=== PATIENT | female | born 1975 ===

== ENCOUNTER 2025-07-11 12:30 | Inpatient (IN) | payer OTHER ==
[~2025-07-11] VITALS: Ht 162.6 cm; Wt 81.6 kg
[2025-07-13 18:27] LABS: T4 FREE 0.88 NG/ML (0.76-1.46)
[2025-07-13 18:46] LABS: TSH 5.09 uIU/mL (0.358-3.74)
[2025-07-17] MEDS ORDERED: RINGERS SOLUTION,LACTATED 1,000 ML IV SCH (14:30)
[2025-07-17 14:39] VITALS: BP 141/86; O2SAT 100
[2025-07-17 17:11] VITALS: BP 125/84; O2SAT 99
[2025-07-17] MEDS ORDERED: FAMOTIDINE/PF 20 MG/2 ML VIAL IV SCH (21:00)
[2025-07-18 00:30] VITALS: BP 107/70; O2SAT 100
[2025-07-18] MEDS ORDERED: LEVOTHYROXINE SODIUM 50 MCG TABLET PO SCH (06:00)
[2025-07-18 07:21] LABS: BASO % 0.4 % (0.1-1.2); EOS # 0.30 (0.04-0.54); EOS % 4.0 % (0.7-7.0); LYMPH # 2.07 (1.18-3.74); LYMPH % 27.7 % (19.3-53.1); MEAN PLATELET VOLUME 10.50 fl (9.4-12.4); MONO # 0.79 (0.24-0.82); MONO % 10.6 % (4.7-12.5); NEUT # 4.26 (1.56-6.13); NEUT % 57.0 % (34.0-71.1); RED CELL DISTRIBUTION WIDTH 17.8 % (11.6-14.4)
[2025-07-18 07:55] LABS: ALT/SGPT 20.0 U/L (12-78); AST/SGOT 20.0 U/L (15-37); BILIRUBIN TOTAL 0.64 mg/dL (0.3-1.2); BUN CREA RATIO 18.0 (7.0-25.0); CREATININE SERUM 0.61 mg/dL (0.55-1.02); GFR 104.68; GLOBULINA 3.5 G/DL (2.4-3.5); GLUCOSE FASTING 84.0 mg/dL (65-100); OSMOLALITY SERUM 276.0 MOSM/KG (275-295)
[2025-07-18 08:59] VITALS: BP 102/65; O2SAT 95
[2025-07-18] MEDS ORDERED: LORATADINE 10 MG TABLET PO STA (12:49)
[2025-07-18 16:57] VITALS: BP 122/87; O2SAT 98
[2025-07-19 00:30] VITALS: BP 114/72; O2SAT 100
[2025-07-19 08:50] VITALS: BP 113/65; O2SAT 96
[2025-07-19] MEDS ORDERED: THROMBIN,HU/FIBRINOGEN/CALCIUM 10 ML SYRINGE TOP ONE (17:05)
[2025-07-19] MEDS ORDERED: VISTASEAL DUAL APPICATOR 1 EACH APPL TOP ONE (17:05)
[2025-07-19] MEDS ORDERED: CLINDAMYCIN PHOSPHATE 150 MG/ML (900mg) ONE (17:41)
[2025-07-19] MEDS ORDERED: METRONIDAZOLE/SODIUM CHLORIDE 500 MG/100 ML PIGGYBACK IV ONE (17:41)
[2025-07-19] MEDS ORDERED: POVIDONE-IODINE 118 ML BOTT TOP ONE (18:45)
[2025-07-19] MEDS ORDERED: CHLORHEXIDINE GLUCONATE 120 ML BOTTLE TOP ONE (18:45)
[2025-07-19] MEDS ORDERED: LIDOCAINE HCL 1%/EPINEPHRINE 20ML VIAL IJ ONE (19:00)
[2025-07-19] MEDS ORDERED: BUPIVACAINE HCL 30 ML VIAL IJ ONE (19:00)
[2025-07-19] MEDS ORDERED: SUGAMMADEX SODIUM 200 MG/2 ML VIAL IV ONE (19:09)
[2025-07-19] MEDS ORDERED: DIPHENHYDRAMINE HCL 50 MG/ML VIAL 1ML ONE (19:44)
[2025-07-19] MEDS ORDERED: ONDANSETRON HCL 2 MG/ML VIAL IV SCH (20:00)
[2025-07-19] MEDS ORDERED: ACETAMINOPHEN 325 MG TABLET PO SCH (20:00)
[2025-07-19] MEDS ORDERED: KETOROLAC TROMETHAMINE 30 MG VIAL IV SCH (20:00)
[2025-07-19] MEDS ORDERED: ONDANSETRON HCL 2 MG/ML VIAL ONE (20:36)
[2025-07-19] MEDS ORDERED: KETOROLAC TROMETHAMINE 30 MG VIAL ONE (20:36)
[2025-07-19] MEDS ORDERED: RINGERS SOLUTION,LACTATED 1,000 ML IV SCH (21:00)
[2025-07-19] MEDS ORDERED: GABAPENTIN 100 MG CAPSULE PO SCH (21:00)
[2025-07-19 21:21] LABS: BASO % 0.2 % (0.1-1.2); EOS # 0.08 (0.04-0.54); EOS % 0.4 % (0.7-7.0); LYMPH # 1.91 (1.18-3.74); LYMPH % 10.1 % (19.3-53.1); MEAN PLATELET VOLUME 9.80 fl (9.4-12.4); MONO # 1.09 (0.24-0.82); MONO % 5.8 % (4.7-12.5); NEUT # 15.63 (1.56-6.13); NEUT % 82.9 % (34.0-71.1); RED CELL DISTRIBUTION WIDTH 17.7 % (11.6-14.4)
[2025-07-20 02:17] VITALS: BP 92/58; O2SAT 95
[2025-07-20 06:51] LABS: BASO % 0.3 % (0.1-1.2); EOS # 0.03 (0.04-0.54); EOS % 0.2 % (0.7-7.0); LYMPH # 1.65 (1.18-3.74); LYMPH % 10.7 % (19.3-53.1); MEAN PLATELET VOLUME 10.20 fl (9.4-12.4); MONO # 1.07 (0.24-0.82); MONO % 6.9 % (4.7-12.5); NEUT # 12.63 (1.56-6.13); NEUT % 81.6 % (34.0-71.1); RED CELL DISTRIBUTION WIDTH 17.5 % (11.6-14.4)
[2025-07-20 07:13] LABS: BUN CREA RATIO 12.0 (7.0-25.0); CREATININE SERUM 0.58 mg/dL (0.55-1.02); GFR 110.96; GLUCOSE FASTING 84.0 mg/dL (65-100); OSMOLALITY SERUM 277.0 MOSM/KG (275-295)
[2025-07-20 08:00] VITALS: BP 97/64; O2SAT 95
[2025-07-20] MEDS ORDERED: LORATADINE 10 MG TABLET PO STA (11:08)
[2025-07-20 12:59] LABS: BASO % 0.3 % (0.1-1.2); EOS # 0.09 (0.04-0.54); EOS % 0.6 % (0.7-7.0); LYMPH # 1.30 (1.18-3.74); LYMPH % 8.9 % (19.3-53.1); MEAN PLATELET VOLUME 9.90 fl (9.4-12.4); MONO # 1.26 (0.24-0.82); MONO % 8.7 % (4.7-12.5); NEUT # 11.82 (1.56-6.13); NEUT % 81.3 % (34.0-71.1); RED CELL DISTRIBUTION WIDTH 17.6 % (11.6-14.4)
[2025-07-20 16:00] VITALS: BP 97/66; O2SAT 95
[2025-07-21] MEDS ORDERED: LORATADINE 10 MG TABLET PO SCH (09:00)
== END 2025-07-20 22:47 | disposition home or self-care (01) | DRG 743 ==
LOC: SURH 07-17 10:49
PROVIDERS: Internal Medicine Geriatric Medicine; Obstetrics & Gynecology Gynecology; Urology; ADMIT Student in an Organized Health Care Education/Training Program; ATTEND Student in an Organized Health Care Education/Training Program
PROC: 30233N1 Transfusion of Nonautologous Red Blood Cells into Peripheral Vein, Percutaneous Approach (ICD-10-PCS; 2025-07-18)
PROC: 0TNB4ZZ Release Bladder, Percutaneous Endoscopic Approach (ICD-10-PCS; 2025-07-19)
PROC: 0UT94ZZ Resection of Uterus, Percutaneous Endoscopic Approach (ICD-10-PCS; principal; 2025-07-19 23:00)
PROC: 0UT74ZZ Resection of Bilateral Fallopian Tubes, Percutaneous Endoscopic Approach (ICD-10-PCS; 2025-07-19 23:00)
DX: D25.9 Leiomyoma of uterus, unspecified (principal); N92.0 Excessive and frequent menstruation with regular cycle; N93.9 Abnormal uterine and vaginal bleeding, unspecified; E03.9 Hypothyroidism, unspecified; N80.9 Endometriosis, unspecified; D64.9 Anemia, unspecified